=== PATIENT | male | born 1985 | race Caucasian/White ===

== ENCOUNTER 2016-09-26 19:54 | Emergency (ER) | payer OTHER ==
[~2016-09-26] VITALS: Ht 177.8 cm; Wt 90.7 kg
[2016-09-26 19:54] VITALS: BP 138/91
--- NOTE | 2016-09-26 20:05 | ED.ADGEN ---
Adult General Chief Complaint Chief Complaint " I got my little finger caught in garage door. ( Lt. ) HPI HPI Patient is a 31 year old male who presents with above hx and complaints of crush injury to Lt little finger. Pt. finger is swollen and painful for range of motion. Does have a Refill though somewhat slightly delayed as compared to other fingers. Patient is right-hand dominant. Patient up-to-date with vaccinations. No travel. No ill contacts. Review of Systems Review of Systems Constitutional: Denies fever or chills [] Eyes: Denies change in visual acuity, redness, or eye pain [] HENT: Denies nasal congestion or sore throat [] Respiratory: Denies cough or shortness of breath [] Cardiovascular: No additional information not addressed in HPI [] GI: Denies abdominal pain, nausea, vomiting, bloody stools or diarrhea [] : Denies dysuria or hematuria [] Musculoskeletal: Denies back pain or joint pain except patient complaints of crush injury left little finger Integument: Denies rash or skin lesions [] Neurologic: Denies headache, focal weakness or sensory changes [] Endocrine: Denies polyuria or polydipsia [] Family History Family History Noncontributory Current Medications Current Medications See nursing for home meds Current Medications Medications (Trade) Dose Ordered Sig/Nayeli Start Time Stop Time Status Last Admin Dose Admin Hydrocodone Bitartrate/ Ibuprofen (Vicoprofen 7.5-200) 2 tab 1X ONCE 09/26/16 20:15 09/26/16 20:16 DC 09/26/16 20:12 2 TAB Allergies Allergies Allergies Coded Allergies Type Severity Reaction Last Updated Verified No Known Drug Allergies 09/26/16 No Physical Exam Physical Exam Constitutional: Well developed, well nourished, no acute distress, non-toxic appearance. [] HENT: Normocephalic, atraumatic, bilateral external ears normal, oropharynx moist, no oral exudates, nose normal. [] Eyes: PERRLA, EOMI, conjunctiva normal, no discharge. [] Neck: Normal range of motion, no tenderness, supple, no stridor. [] Cardiovascular:Heart rate regular rhythm, no murmur [] Lungs & Thorax: Bilateral breath sounds clear to auscultation [] Abdomen: Bowel sounds normal, soft, no tenderness, no masses, no pulsatile masses. [] Skin: Warm, dry, no erythema, no rash. [] Back: No tenderness, no CVA tenderness. [] Extremities: Left little finger tenderness, no cyanosis, no clubbing, ROM intact , left little finger edema. [] Neurologic: Alert and oriented X 3, normal motor function, normal sensory function, no focal deficits noted. [] Psychologic: Affect normal, judgement normal, mood normal. [] EKG EKG [] Radiology/Procedures Radiology/Procedures My interpretation of x-ray shows no obvious fracture /dislocation. But have some obvious edema in area of crush injury [] Course & Med Decision Making Course & Med Decision Making Pertinent Labs and Imaging studies reviewed. (See chart for details). Ice, elevation, rest, and take Tylenol or IbuProfen for pain. Wear splint. Follow-up primary care. Return of any concerns. Marked pain may take Vicoprofen up 4 times a day. [] Final Impression Final Impression 1. Crush injury Lt little finger[] Problems: Dragon Disclaimer Dragon Disclaimer This electronic medical record was generated, in whole or in part, using a voice recognition dictation system. ORESTES QUEVEDO MD Sep 26, 2016 20:05
[2016-09-26] MEDS ORDERED: HYDROCODON/IBUPROFEN 7.5/200MG TABLET. PO ONE (20:15)
[2016-09-26] MEDS ORDERED: HYDR-79 PO (20:22)
--- NOTE | 2016-09-27 08:47 | RAD ---
Indication: Smashed fifth digit today. Technique: 3 views of the left fifth digit including an AP view of the hand are submitted for review. No comparison is available. Findings: There is soft tissue swelling but no fracture or dislocation. Impression: Negative for fracture.
== END 2016-09-26 20:35 | disposition home or self-care (01) ==
LOC: ER 19:54
DX: S67.197A Crushing injury of left little finger, initial encounter (principal); W23.0XXA Caught, crushed, jammed, or pinched between moving objects, initial encounter; Y93.89 Activity, other specified; Y99.8 Other external cause status; Y92.89 Other specified places as the place of occurrence of the external cause
CPT/HCPCS: 29130; 73140; 99284-25